=== PATIENT | male | born 1975 | race Caucasian/White ===

== ENCOUNTER → 2016-11-08 | Outpatient (CLI) | payer OTHER ==
[~2016-11-08] MED LIST: IBUPROFEN 800800 M1 PO; METHOCARBAMOL500 M2 PO
== END ==
LOC: CAT 08:57
DX: M54.2 Cervicalgia (principal); R42 Dizziness and giddiness; R51 Headache

== ENCOUNTER → 2016-11-10 | Outpatient (CLI) | payer OTHER ==
[~2016-11-10] VITALS: Ht 172.7 cm; Wt 78.0 kg
--- NOTE | ~2016-11-10 | HPC ---
[facility] [address] [place] [address] PAIN MANAGEMENT CONSULTATION Name: KACEY PALUMBO [id number] Admission: 11/10/16 Attend Phys: Isabelle Willams MD Discharge: Date of : 79 Report #: [id number] THIS REPORT FOR: //name// CC: Isabelle SÁNCHEZ PCP DATE OF SERVICE: 11/10/2016 CHIEF COMPLAINT: Pain in the back of the head on the left and the right, which radiates to the side and sometimes pain in the area of the eye. FOLLOWUP HISTORY: The patient is a 41-year-old gentleman who has been referred to the pain clinic for evaluation of neck and head pain. He has been experiencing pain since September. He has noted some lightheadedness as well as headaches, sometimes had blurred vision. He has seen a chiropractor. He was having some pain and discomfort in the lower portion of his back. He has undergone a CT. This was interpreted as negative. CAT scan of the neck angiogram reveals no dissection or stenosis. Vessels of the neck appear widely patent. He denies any trauma. He did take a Medrol Dosepak with no significant improvement. He has been taking ibuprofen and finds that these can be helpful for a while. He has been taking a muscle relaxant. Overall, he rates his pain as a 5/10. He describes it as throbbing, periodic lightheaded with pressure. ALLERGIES: SULFA. MEDICATIONS: Ibuprofen 800 mg q. 8 hours, methocarbamol 500 mg t.i.d. PAST MEDICAL HISTORY: Unremarkable. PAST SURGICAL HISTORY: None. REVIEW OF SYSTEMS: Questionnaire in the chart 14-points indicate decreased appetite, headaches, wears glasses, sometimes blurred vision, chest palpitations has been worked up by his doctor for cardiac problems, numbness and tingling in his left great toe, nervousness, depression. LABORATORY DATA: CT of the head without contrast dated 11/08/2016 reveals the ventricles, sulci, basilar cisterns appear normal. No evidence of intracranial hemorrhage, mass effect, or abnormal extra ____ fluid collections. No foci of abnormal low attenuation appreciated. The caruso matter differentiation is maintained. They included paranasal sinuses and mastoids are clear. Impression: Negative CT of head. CT neck, angiogram of the neck. Great vessels are widely patent. Common carotid, internal and external carotid arteries are widely patent without stenosis. Dissection or significant plaquing. Impression: No dissection or stenosis is seen. Vessels of the neck appear widely patent. [address] [address] PAIN MANAGEMENT CONSULTATION Name: KACEY PALUMBO Room #: REG [facility]#: [id number] Admission: 11/10/16 Attend Phys: Isabelle Willams MD Discharge: Date of : 79 Report #: [id number] PHYSICAL EXAMINATION: Blood pressure 121/82, pulse 63, respiratory rate 14, room air saturation is 100, height 5 feet 8 inches, weight 172 pounds, BMI is 26. The patient has some tenderness and soreness in the left and right occipital areas. Palpation in this area does cause irritation in the distribution of the greater left and greater right occipital nerves. IMPRESSION: Bilateral occipital neuralgia. RECOMMENDATIONS: We discussed the treatment options with the patient. Risks and benefits of an occipital nerve block were discussed. Possible complications were reviewed. The patient elects to proceed. PROCEDURE NOTE: The patient was placed in the prone position. A chlorhexidine solution was placed in the left and right occipital areas. It was allowed to dry. A 25-gauge needle was then advanced into the area of the left occipital nerve region. 0.5% bupivacaine 5 mL and 40 mg Depo-Medrol was injected. The contralateral side was treated in the like fashion and a total of 5 mL of 0.5% bupivacaine and 40 mg triamcinolone was injected. The patient tolerated the procedure well. He will follow up in the near future. We would like to thank you for letting us participate in his care. <ELECTRONICALLY SIGNED> By: Isabelle Willams MD 11/11/16 0824 [id number] Isabelle Willams MD /marcia
[2016-11-10 10:45] VITALS: BP 121/82
== END | disposition home or self-care (01) ==
LOC: PAIN 06:41
DX: M54.81 Occipital neuralgia (principal); Z88.2 Allergy status to sulfonamides

== ENCOUNTER → 2016-11-17 | Outpatient (CLI) | payer OTHER ==
[~2016-11-17] VITALS: Ht 172.7 cm; Wt 76.0 kg
[~2016-11-17] MED LIST changes: +EXCEDRIN MIGRA1 EACH PO
--- NOTE | ~2016-11-17 | HPC ---
[facility] [address] [place] [address] PAIN MANAGEMENT CONSULTATION Name: KACEY PALUMBO [facility] [id number] Admission: 11/17/16 Attend Phys: Isabelle Willams MD Discharge: Date of : 79 Report #: [id number] THIS REPORT FOR: //name// CC: Gerson Solo FAM connor Willams DATE OF SERVICE: 11/17/2016 CHIEF COMPLAINT: Headache pain and neck pain are still there. FOLLOWUP HISTORY: The patient is a 41-year-old gentleman who has been referred to the pain clinic for evaluation of neck pain. He continues to have pain and discomfort involving the posterior portion of his head. He feels discomfort in the area of the occipital bone. He continues to complain of pain and discomfort in the neck and trapezius muscles. Certain movements of his head can exacerbate a feeling of throbbing and pressure sensation in the posterior portion of his head. After the occipital nerve injections, he did not notice a significant improvement in his discomfort. He does continue at times to have some blurred vision. He does wear contacts. He continues to complain about a feeling of lightheadedness. He continues to use muscle relaxants. He does feel some anxiety regarding his overall condition. He does note some improvement with use of Excedrin. He rates his pain and discomfort as a 7-8 at this juncture. PHYSICAL EXAMINATION: Blood pressure 151/98, pulse 75, respiratory rate 14, room air saturation is 100, height 5 feet 8 inches, weight 167 pounds, BMI is 25. He does note some pain in the trapezius areas bilaterally with pain in the posterior scapular area. Palpation reveals a trigger point in the trapezius area. Range of motion is within normal limits with extension, flexion, left and right lateral rotation. The patient notes some improvement in right lateral rotation and left lateral rotation after the last injection. He complains of some feeling of lightheadedness with movement/adjustments by his chiropractor. IMPRESSION: Lightheadedness, trapezius pain with discomfort in the scapular area, occasional pain with radiation down into the left arm with tingling in his fingers, feeling of throbbing and lightheadedness with certain motions or pressure points in his occipital area and neck. Pain in the occipital area, left neck, left shoulder, scapula with occasional pain and discomfort radiating down into the left arm with numbness in the fingers. RECOMMENDATIONS: We discussed treatment options with the patient. We will try a conservative approach. At this juncture, he will try Gralise as directed. Possibility of a cervical epidural steroid injection will be entertained in the future. We elected the patient may need an MRI to evaluate the cervical anatomy. He will call us if he has any problems with the Gralise medication. [address] [address] PAIN MANAGEMENT CONSULTATION Name: KACEY PALUMBO Room #: REG [facility] Jossie#: [id number] Admission: 11/17/16 Attend Phys: Isabelle Willams MD Discharge: Date of : 79 Report #: [id number] We would like to thank you for letting us participate in his care. By: [id number] Isabelle Willams MD /marcia
[2016-11-17 11:09] VITALS: BP 151/98
== END | disposition home or self-care (01) ==
LOC: PAIN 10:35
DX: M54.2 Cervicalgia (principal); R42 Dizziness and giddiness

== ENCOUNTER → 2016-12-10 | Outpatient (CLI) | payer OTHER | LOC: MRI 12-07 08:26 | DX: M54.2 Cervicalgia (principal) ==

== ENCOUNTER → 2018-01-09 | Outpatient (CLI) | payer OTHER | LOC: ULTRA 14:43 | DX: I65.23 Occlusion and stenosis of bilateral carotid arteries (principal); R93.5 Abnormal findings on diagnostic imaging of other abdominal regions, including retroperitoneum; Z82.49 Family history of ischemic heart disease and other diseases of the circulatory system ==